=== PATIENT | male | born 1950 | race Caucasian/White ===

== ENCOUNTER → 2017-03-20 | Outpatient (CLI) | payer OTHER, MEDICARE ==
[~2017-03-20] MED LIST: AMARYL4 MG PO; CRESTOR5 MG PO; GLUCOPHAGE1000 MG PO; GLUCOSAMINE HC500 MG PO; LISINOPRIL10 MG PO; LOPRESSOR25 PO; MOBIC7.5 MG PO; MULTIVITAMINS1 EAC7 PO; PRILOSEC 20 MG20 MG PO; PROZAC 20 MG20 MG PO; WELCHOL 625 MG625 MG PO
--- NOTE | ~2017-03-20 | CNG ---
[facility] [place] [address] CYTO-NONGYN REPORT PROCEDURE Name: GAGEMICHELLE JAYY [id number] Admission: 03/20/17 Date of : 46 Discharge: Report #: [id number] Path Case #: [id number] CYTOPATHOLOGY REPORT COLLECTION DATE: 03/20/2017 RECEIVED DATE: 03/20/2017 SUBMITTING PHYS: Dr. Jayy Hawkins Jr. OTHER PHYS: Dr. Mane Pratt CLINICAL HISTORY: Multiple thyroid nodules. See also [id number] SPECIMEN(S) RECEIVED: A.Fine needle aspiration, Right superior thyroid B.Fine needle aspiration, Left Mid/Inf thyroid * * * * * * * * * * * * FINAL DIAGNOSIS: A. Right superior thyroid, Fine needle aspiration: BETHESDA CATEGORY II. SPECIMEN CONSISTS OF A FEW GROUPS OF FOLLICULAR CELLS, ABUNDANT COLLOID, AND BLOOD. THIS PATTERN IS CONSISTENT WITH A COLLLOID NODULE. - Negative for nuclear features of papillary carcinoma. B. Left Mid/Inf thyroid, Fine needle aspiration: BETHESDA CATEGORY II. SPECIMEN CONSISTS OF A FEW GROUPS OF FOLLICULAR CELLS, ABUNDANT COLLOID, AND BLOOD. THIS PATTERN IS CONSISTENT WITH A COLLLOID NODULE. - Negative for nuclear features of papillary carcinoma Comment: The concurrent needle core biopsy [id number] is pending at the time of this report. Please refer to a separate report. Sample may not be pharmaceutical sales representative, correlate clinically and follow-up as indicated. PATHOLOGIST: Vale Hatfield M.D. REPORT ELECTRONICALLY SIGNED BY: Vale Hatfield M.D. DATE/TIME: 03/21/2017 15:34 * * * * * * * * * * * * GROSS PATHOLOGY: A. Fine needle aspiration, Right superior thyroid: The specimen is labeled "GageMichelle lombardo Jayy" and consists of four fixed slides, four air dried slides. Twenty mL of clear pink fluid in fixative from the needle rinse is also submitted and one ThinPrep slide and a cell block were prepared from this material. Also received is the RNARetain vial labeled with (Right sup) which will be held for molecular studies if needed. B. Fine needle aspiration, Left Mid/Inf thyroid: The specimen is labeled "GageMichelle lombardo Jayy" and consists of four fixed slides, four [address] [address] CYTO-NONGYN REPORT PROCEDURE Name: GAGEMICHELLE [facility] [id number] Admission: 03/20/17 Date of : 46 Discharge: Report #: [id number] Path Case #: [id number] air dried slides. Twenty mL of clear red fluid in fixative from the needle rinse is also submitted and one ThinPrep slide and a cell block were prepared from this material. (clt 03.20.2017) Also received is the RNARetain vial labeled with (Left mid/inf) which will be held for molecular studies if needed. LEVELING MACHINE OPERATOR(S): CECELIA Martin(ASCP), IAC INITIAL CPT CODE(S): A; 36417, 04677 B; 62104, 42556 Professional services performed by [facility] at [facility] [address] [place] [address] Technical services performed by [facility] at [address] [place] [address], [address], [place] [address]. [facility] [address] [place] [address], [address] [place] [address] PHONE: [phone] DIRECTOR: Edgardo Baig M.D. * * * END OF REPORT * * *
--- NOTE | ~2017-03-20 | S ---
[facility] [place] [address] SURGICAL PATH RPT PROCEDURE Name: MICHELLE ALMONTE Room #: REG [facility]..#: [id number] Admission: 03/20/17 Date of : 46 Discharge: Report #: [id number] Path Case #: [id number] PATHOLOGY REPORT COLLECTION DATE: 03/20/2017 RECEIVED DATE: 03/20/2017 SUBMITTING PHYS: Dr. John Paul Hawkins Jr. OTHER PHYS: Dr. Mane Pratt SPECIMEN(S) RECEIVED: A.Rt superior nodules B.Left mid/inf nodules * * * * * * * * * * * * FINAL DIAGNOSIS: A. 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 - Negative for nuclear features of papillary thyroid carcinoma. - No definite capsule identified. B. 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 - Negative for nuclear features of papillary thyroid carcinoma. - No definite capsule identified. COMMENT: Findings may be suggestive of an adenomatoid nodule with mixed macro- and microfollicular architecture. Please note sample represents a minute portion of a larger lesion and may not be car sales representative. Correlate clinically and follow up as indicated. The concurrent cytology, fine needle aspirate [id number], showed findings suggestive of a colloid nodule/adenomatoid nodule as well. Please see separate report for details. (IUV:csd; d/t: 03/22/2017) PATHOLOGIST: Vale Hatfield M.D. REPORT ELECTRONICALLY SIGNED BY: Vale Hatfield M.D. DATE/TIME: 03/22/2017 17:23 * * * * * * * * * * * * GROSS PATHOLOGY: A. Received in formalin labeled "Michelle Almonte, right superior FNA biopsy," is a single needle core of malik soft tissue measuring 1.7 cm in length and less than 0.1 cm in diameter. The specimen is submitted entirely in cassette A1. [facility] [place] [address] SURGICAL PATH RPT PROCEDURE Name: MICHELLE ALMONTE Room #: REG [facility]..#: [id number] Admission: 03/20/17 Date of : 46 Discharge: Report #: [id number] Path Case #: [id number] B. Received in formalin labeled "Michelle Almonte, left mid inferior FNA biopsy," are 3 distinct needle cores of mlaik soft tissue ranging from 0.4 to 1.0 cm in length, which are submitted entirely in cassette B1. (KAH; 03/21/2017) CLINICAL HISTORY: Right superior and left mid/inferior nodules INITIAL CPT CODE(S): A; 42477 B; 17620 Professional services performed by [facility] at [address] , [place] [address] Technical services performed by [facility] at [address] [place] [address], [facility] [address], [place] [address]. [facility] [address] [address] PHONE: [phone] DIRECTOR: Edgardo Baig M.D. * * * END OF REPORT * * *
== END ==
LOC: ULTRA 13:30
DX: E04.1 Nontoxic single thyroid nodule (principal)